=== PATIENT | female | born 1980 | race Caucasian/White ===

== ENCOUNTER 2017-01-19 10:51 | Inpatient (IN) | payer OTHER ==
[~2017-01-19] VITALS: Ht 162.6 cm; Wt 98.0 kg
--- NOTE | ~2017-01-19 | DS ---
Unit #: [id number] #: [id number] Patient: SEN CARROLL [id number] [address] [place], [place] [address] [id number] I MR#: [id number] NAME: SEN CARROLL ROOM: 224 Age: 36 Sex: F Admission Date: 01/19/2017 : 1980 Discharge Date: Attending Physician: Jeremi Finn M.D. Primary Care Physician: Jennifer Hidalgo M.D. DISCHARGE SUMMARY PRIMARY DIAGNOSIS Suicide attempt with intentional polysubstance overdose. SECONDARY DIAGNOSES 1. Polysubstance abuse. 2. Recent history of intravenous drug use. 3. Depression. 4. Anxiety. 5. Seizure disorder. 6. Reported history of thyroid disease per records. 7. Reported history of traumatic brain injury per records. 8. Hypothermia at admission secondary to drug overdose, resolved. 9. Aspiration pneumonitis. 10. Possible aspiration pneumonia. 11. Possible otitis media. 12. Acute hypoxemic respiratory failure, resolved on 01/20/2017. HOSPITAL COURSE The patient was admitted and was intubated. She was able to be quickly extubated early on the morning of the and was transferred to the medical floor at 9 in the morning. She was monitored on the medical floor for 24 hours and had stable vitals and stable exam. The patient's white blood cell count was minimally elevated at 14.8 but she did not have any fever or any cough. She was complaining of some nausea and some right ear pain. At this time, I am going to place her on a 7 day empiric course of Augmentin and recommend a repeat CBC in five days. I have also started her on Flonase nasal spray twice daily for the next 1 week. I have restarted many of her previous home medications although based on tablet counts and the date of when she filled her medications, it appears she has been noncompliant with almost all of them. As such, I restarted her gabapentin at a lower dose. I have not restarted her bupropion, her meclizine or her Bentyl or her Phenergan or her Flexeril. Restarting these could be considered depending on her symptomatology over the next few weeks but, as she had not been taking any of the medications, I didn't want to start too many too quickly. DISCHARGE DISPOSITION To [facility]. DISCHARGE STATUS Stable. DISCHARGE ACTIVITY Unit #: [id number] #: [id number] Patient: SEN CARROLL Ad alanna. DISCHARGE DIET Unrestricted. DISCHARGE FOLLOWUP With her PCP in 2-4 weeks and with [facility] while inpatient and then per their recommendations at discharge. DISCHARGE MEDICATIONS 1. Tylenol 650 mg p.o. q.4 hours p.r.n. for mild or moderate pain. 2. Flonase 0.05% nasal spray, 1 spray twice daily for the next 1 week and then stop. 3. Neurontin 200 mg p.o. t.i.d. 4. Topamax 50 mg p.o. b.i.d. 5. Zofran 4 mg p.o. q.6 hours p.r.n. for nausea. 6. Seroquel 100 mg p.o. q. h.s. 7. Xanax 0.5 mg p.o. q.6 hours p.r.n. anxiety. 8. Atenolol 25 mg p.o. daily. 9. MonoNessa 28, 1 tablet p.o. daily. 10. Augmentin 875 mg p.o. b.i.d. x7 days. The last dose should be on January 28, 2017. 11. Tramadol 100 mg p.o. q.6 hours p.r.n. severe pain for the next 3 days and then stop. Dictated by... Jeremi Finn M.D. BINDU/she TD: 01/21/2017 10:30 JOB #: [id number] DISCHARGE SUMMARY Page 1 of 1 X Jeremi Finn MD X DISCHARGE SUMMARY
--- NOTE | ~2017-01-19 | CO ---
Unit #: [id number] #: [id number] Patient: TAMMIE CARROLL [id number] [facility] [address]. [place], [place] [address] [id number] I MR#: [id number] NAME: TAMMIE CARROLL ROOM: 224 Age: 36 Sex: F Admission Date: 01/19/2017 : 1980 Attending Physician: Jeremi Finn M.D. Primary Care Physician: Jennifer Hidalgo M.D. Consultation Date: 01/20/2017 CONSULTATION REPORT REASON FOR CONSULTATION Overdose. HISTORY OF PRESENT ILLNESS Ms. Tammie Carroll is a 36-year-old white female, seen in room 224, bed 1, on 01/20/2017, at [facility]. The patient was admitted with overdose of pills, intentional, with a plan to . The patient reports that she attempted earlier also. The patient has 2 children, currently CPS is involved. Also, talked to the CPS worker, Guerline Chaney, telephone #[phone]. The patient reports her family is taking care of the children. The patient has active CPS involvement. The patient reported multiple stressors, sad, and depressed. The patient dressed casually in hospital attire, has a sitter, and currently on 72-hour hold. Tearful, sad, depressed, and anxious. The patient's urine drug screen was positive for benzodiazepine, amphetamine, marijuana, and tricyclics. PAST PSYCHIATRIC HISTORY Remarkable for history of previous suicide attempt and history of depression. Treatment at [facility] on 03/18/2009. MEDICAL HISTORY History of traumatic brain injury, seizure disorder, and thyroid disorder. MEDICATION HISTORY The patient currently on no medication. Recent overdose. FAMILY HISTORY AND SOCIAL HISTORY The patient has a good support system, has 2 children. History of substance abuse. Urine drug screen was positive for benzodiazepine, amphetamine, and marijuana. REVIEW OF SYSTEMS Complete review of systems is unremarkable except as mentioned above. MENTAL STATUS EXAMINATION The patient's vital signs; temperature 98.4, heart rate 81, respiratory rate 16, blood pressure 125/58, and oxygen saturation 100%. General appearance, the patient dressed casually, lying comfortably in bed, seemed somewhat anxious and nervous. Attention span and concentration, fair. Speech, regular rate and coherent. Oriented in time, place, and person. Mood and affect, labile. Thought process, circumstantial. Thought content, the patient denied any thoughts of harming others, but passive SI and recent suicide attempt. Recent and remote memory, fair. Language, Unit #: [id number] #: [id number] Patient: WHITE,TAMMIE intact. Fund of knowledge, fair. Insight and judgment, fair to slightly impaired. DIAGNOSES Psychiatric: Major depressive disorder, recurrent, severe, F33.2; cannabis abuse, moderate, F12.20; and amphetamine use disorder, severe, F15.20. Secondary diagnosis: Deferred. Medical diagnosis: Please refer to H and P. Stressors: Psychosocial stressors. ASSESSMENT/PLAN 1. Supportive psychotherapy and psychoeducation provided to the patient. 2. Educated about benefits and side effects of medication and course and prognosis of illness. 3. Advised no medication at this time. Continue with the sitter and 72-hour hold and transfer the patient to [facility] after the patient is medically stable for inpatient psychiatric stabilization. Please feel free to call if any questions, telephone #[phone]. Dictated by... Josesito Hampton M.D. BIBI/cecily TD: 01/20/2017 19:03 JOB #: [id number] CONSULTATION REPORT Page 1 of 1 X Josesito Hampton MD CONSULTATION REPORT
--- NOTE | ~2017-01-19 | CR6 ---
[facility] A Service of [facility] & [facility] RADIOLOGY TEXT RESULTS PATIENT: SEN CARROLL LOCATION: CICCU3 CICCU3-13 : [birth year] UNIT #: [id number] AGE: [address]: More Chappell MD SEX: F ORDER DR: [id number] [facility] [address]. [place], [place] [address] [id number] I MR#: [id number] Acc #: [id number] NAME: SEN CARROLL : 1980 SEX: F STUDY DATE/TIME: 01/19/2017 11:29 UNIT: CEDOF ROOM: 64499 STUDY DESCRIPTION: CR Abdomen Portable Sng View Attending Physician: More Chappell M.D. Ordering Physician: Mica Acharya M.D. Primary Care Physician: Jennifer Hidalgo M.D. MEDICAL IMAGING REPORT This report is preliminary unless electronic signature is present EXAM Portable abdomen, 01/19/2017. HISTORY NG tube placement. FINDINGS NG tube tip in the uppermost portion of the stomach with a sidehole in the distal thoracic esophagus. Consider advancing the tube 10 to 12 cm for placement in the mid to distal stomach. Dictated by... Jake Hills M.D. THIS IS AN ELECTRONICALLY VERIFIED REPORT Jake Hills M.D. at 01/20/2017 5:57 AM MARCELA/keron TD: 01/19/2017 17:20 JOB #: [id number] MEDICAL IMAGING REPORT Page 1 of 1 COPY
--- NOTE | ~2017-01-19 | EKG ---
PATIENT: SEN CARROLL UNIT #: [id number] Ventricular Rate: 66 BPM Atrial Rate: 66 BPM P-R Interval: 172 ms QRS Duration: 102 ms Q-T Interval: 466 ms QTC Calculation(Bezet): 488 ms P [place]: 29 degrees Calculated R [place]: -49 degrees Calculated T [place]: 46 degrees Diagnosis Line: Normal sinus rhythm Diagnosis Line: Left axis deviation Diagnosis Line: Prolonged QT Diagnosis Line: Abnormal ECG Diagnosis Line: When compared with ECG of 27-NOV-2015 19:05, Diagnosis Line: No significant change was found Diagnosis Line: Confirmed by JASON FAJARDO MD ([id number]) on Diagnosis Line: 01/21/2017 11:30:54 AM INTERPRETING MD: SCOTTY MASCORRO
--- NOTE | ~2017-01-19 | DS ---
Unit #: [id number] #: [id number] Patient: SEN CARROLL [id number] [address] [address] [id number] I MR#: [id number] NAME: SEN CARROLL ROOM: 224 Age: 36 Sex: F Admission Date: 01/19/2017 : 1980 Discharge Date: 01/21/2017 Attending Physician: Jeremi Finn M.D. Primary Care Physician: Jennifer Hidalgo M.D. DISCHARGE SUMMARY ADDENDUM Ms. Carroll was noted to have a lesion on her CT scan of her head that is felt to be benign clinically and is not felt to be related to her admission and as such is likely an incidental finding. The patient should follow up with her primary care physician, Jennifer Hidalgo M.D., and discuss whether further evaluation would be warranted once her severe depression and suicidality is better controlled. Consideration could be made for an outpatient MRI of the head sometime in the next six months, but it would certainly be reasonable to do no further imaging as well. Dictated by... Jeremi Finn M.D. BINDU/gabriel TD: 01/24/2017 11:55 JOB #: [id number] DISCHARGE SUMMARY Page 1 of 1 X Jeremi Finn MD X DISCHARGE SUMMARY
--- NOTE | ~2017-01-19 | CO ---
Unit #: [id number] #: [id number] Patient: SEN CARROLL [id number] [address] [place], [place] [address] [id number] I MR#: [id number] NAME: SEN CARROLL ROOM: 224 Age: 36 Sex: F Admission Date: 01/19/2017 : 1980 Attending Physician: Jeremi Finn M.D. Primary Care Physician: Jennifer Hidalgo M.D. Consultation Date: 01/19/2017 CONSULTATION REPORT REASON FOR CONSULT ICU management. CHIEF COMPLAINT Overdose. HISTORY OF PRESENT ILLNESS This is a 36-year-old female with a past medical history significant for depression, anxiety, seizure disorder, who presented to the emergency room via EMS for evaluation of overdose. Patient, at this point, is intubated with no sedation. Luckily, she started waking up and she is following simple commands. Upon presentation, she was hypothermic and completely unresponsive. Apparently, from the ER staff, the patient sent a message of suicide to her ex- yesterday. PAST MEDICAL HISTORY 1. Multiple suicide thoughts versus attempts in the past. 2. Seizure disorder. 3. Traumatic brain injury. 4. Thyroid disorder. PAST SURGICAL HISTORY 1. . 2. Ectopic . SOCIAL HISTORY Patient has a history of IV drug abuse. No history of alcoholism. She lives with her kids. REVIEW OF SYSTEM Unable to obtain. FAMILY HISTORY Unable to obtain. PHYSICAL EXAMINATION GENERAL: The patient is on the vent. VITAL SIGNS: Blood pressure 120/62, respiratory rate 18, O2 saturation 98%. HEENT: Atraumatic, normocephalic. PERRLA, EOMI. NECK: Supple. No JVD, no lymphadenopathy. CHEST: Decreased breath sounds bilaterally. Unit #: [id number] #: [id number] Patient: SEN CARROLL HEART: S1, S2. No murmur, gallops or rubs. ABDOMEN: Soft, nontender. Bowel sound is positive. No hepatosplenomegaly. EXTREMITIES: Trace edema. SKIN: No rashes. TMR TEACHER: Patient is on the vent but she started waking up and she is following simple commands. There is no focal motor weakness. LABS AND OTHER TESTS LABORATORY: Creatinine 0.7, CO2 24, magnesium 2.1, white blood count 14.4. IMAGING: Slight infiltrate concerning for aspiration. ASSESSMENT 1. Acute hypoxic respiratory failure. 2. Drug overdose. 3. Suicidal attempt. 4. Aspiration. 5. Traumatic brain injury. 6. Leukocytosis. PLAN 1. Patient is critical. Will continue on the vent with hope that she will be extubated within the next 24 hours. 2. Zosyn initially for possible aspiration. However, will try to de-escalate as soon as possible was this is likely to represent chemical pneumonitis. 3. IV hydration and will monitor urine output and lactic acid. 4. Propofol for sedation if needed. 5. DVT and GI prophylaxis. 6. Psych eval once she is extubated. Critical care time spent on this patient was 32 minutes. Dictated by... Mckenzie Patricia M.D. EA/she TD: 01/21/2017 06:18 JOB #: [id number] CONSULTATION REPORT Page 1 of 1 X MCKENZIE THOMAS MD X CONSULTATION REPORT
--- NOTE | ~2017-01-19 | CT71 ---
[facility] A Service of [facility] & [facility] RADIOLOGY TEXT RESULTS PATIENT: SEN CARROLL LOCATION: C2A 224-01 : [birth year] UNIT #: [id number] AGE: [address]: Jeremi Finn MD SEX: F ORDER DR: [id number] [facility] [address] [place], [place] [address] [id number] I MR#: [id number] Acc #: [id number] NAME: SEN CARROLL : 1980 SEX: F STUDY DATE/TIME: 01/19/2017 12:10 UNIT: [facility] ROOM: [facility] STUDY DESCRIPTION: CT Head Wo Contrast Attending Physician: More Chappell M.D. Ordering Physician: Mica Acharya M.D. Primary Care Physician: Jennifer Hidalgo M.D. MEDICAL IMAGING REPORT This report is preliminary unless electronic signature is present EXAM CT head HISTORY Altered mental status. Suspected overdose. Intubated. Bruising above right eye. Found unresponsive today. TECHNIQUE CT head performed skull base through vertex without intravenous contrast. This CT exam was performed with one or more of the following radiation dose reduction techniques: automatic exposure control, adjustment of mA and/or kV according to patient size, and iterative reconstruction. COMPARISON STUDIES No prior imaging of brain for comparison. FINDINGS Brainstem is unremarkable. The cerebellum and cerebral hemispheres show overall preservation of joshua matter-white matter differentiation. No hemorrhage. No evidence of acute cortical ischemia. Midline structures are nondisplaced. There is a fat density midline extraaxial mass lesion extending from the superior aspect of the pineal gland along the corpus callosum. It measures up to 2.5 cm in length by about 1.4 cm in width. It may exert some slight mass effect on adjacent structures. It appears to be of uniform fat density. 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 Differential diagnosis includes teratoma. There are subcentimeter localized fatty nodules in the bilateral lateral ventricle choroid plexus. Also with an appearance most suggestive of lipomas. I do not believe that these findings relate to the patient's acute presentation. Comparison with any prior studies recommended to assess for stability. These findings could be further evaluated with elective MRI. The basal ganglia [facility] A Service of [facility] RADIOLOGY TEXT RESULTS PATIENT: SEN CARROLL LOCATION: C2A 224-01 : [birth year] UNIT #: [id number] AGE: [address]: Jeremi Finn MD SEX: F ORDER DR: show no acute abnormality. Ventricles, cisterns and sulci within normal limits of size and contour. No abnormal fluid collection. Intraorbital soft tissues unremarkable. No fracture. Visualized paranasal sinuses and mastoid air cells show minimal mucosal thickening in the left maxillary sinus. IMPRESSION 1. There is no clearly acute abnormality seen in the brain. 2. Fat-density extraaxial mass extending superiorly and anteriorly from region of the pineal gland, along the midline corpus callosum, measuring about 2.5 cm in length by about 1.4 cm in width. Pineal or pericallosal lipoma favored. Differential diagnosis could include teratoma. There may be some very minimal mass effect on adjacent structures but I see no indication of parenchymal invasion. I doubt this is related to the patient's acute presentation. There are small subcentimeter fat-density nodules in the bilateral lateral ventricular choroid plexus. Comparison with any prior studies would be useful to assess for stability. If it would assist in patient management, the findings could be further evaluated with elective MRI. 3. No fracture. 4. Minimal mucosal thickening left maxillary sinus. Dictated by... Jorge Garcia M.D. THIS IS AN ELECTRONICALLY VERIFIED REPORT Jorge Garcia M.D. at 01/21/2017 2:31 PM DAVID/jn TD: 01/19/2017 19:18 JOB #: [id number] MEDICAL IMAGING REPORT Page 1 of 1 COPY
--- NOTE | ~2017-01-19 | CR72 ---
[facility] A Service of [facility] RADIOLOGY TEXT RESULTS PATIENT: SEN CARROLL LOCATION: CICCU3 CICCU313 : [birth year] UNIT #: [id number] AGE: [address]: More Chappell MD SEX: F ORDER DR: [id number] [facility] [address] [facility]. [place], [place] [address] [id number] I MR#: [id number] Acc #: [id number] NAME: SEN CARROLL : 1980 SEX: F STUDY DATE/TIME: 01/19/2017 11:31 UNIT: CEDOF ROOM: 67997 STUDY DESCRIPTION: CR Chest Single View Portable Attending Physician: More Chappell M.D. Ordering Physician: Mica Acharya M.D. Primary Care Physician: Jennifer Hidalgo M.D. MEDICAL IMAGING REPORT This report is preliminary unless electronic signature is present EXAM Chest x-ray, 01/19/2017. HISTORY 36-year-old female in the ED with reported drug overdose. Endotracheal tube placement. TECHNIQUE AP portable chest x-ray. FINDINGS Newly placed endotracheal tube tip is in the low thoracic trachea within 1 cm of the forest. Tube tip is directed toward the right mainstem bronchus. NG tube tip is in the uppermost portion of the stomach. Lungs clear. Heart size and pulmonary vascularity are normal. No visible pneumothorax or pleural effusion. IMPRESSION ETT and NG tube position as noted above. Dictated by... Jake Hills M.D. THIS IS AN ELECTRONICALLY VERIFIED REPORT Jake Hills M.D. at 01/20/2017 5:57 AM MARCELA/jayda TD: 01/19/2017 17:21 JOB #: [id number] MEDICAL IMAGING REPORT [facility] A Service of [facility] RADIOLOGY TEXT RESULTS PATIENT: SEN CARROLL LOCATION: CICCUDhara CICCU313 : [birth year] UNIT #: [id number] AGE: [address]: More Chappell MD SEX: F ORDER DR: Page 1 of 1 COPY
--- NOTE | ~2017-01-19 | CR72 ---
[facility] A Service of [facility] & [facility] RADIOLOGY TEXT RESULTS PATIENT: SEN CARROLL LOCATION: A 224-01 : [birth year] UNIT #: [id number] AGE: [address]: Jeremi Finn MD SEX: F ORDER DR: [id number] [facility] [address] [place], [place] [address] [id number] I MR#: [id number] Acc #: [id number] NAME: SEN CARROLL : 1980 SEX: F STUDY DATE/TIME: 01/20/2017 04:13 UNIT: C2A ROOM: 224 STUDY DESCRIPTION: CR Chest Single View Portable Attending Physician: More Chappell M.D. Ordering Physician: More Chappell M.D. Primary Care Physician: Jennifer Hidalgo M.D. MEDICAL IMAGING REPORT This report is preliminary unless electronic signature is present EXAM Portable chest, 01/20 at 04:13 hours INDICATIONS Shortness of air and cough. Overdose 2 days ago. FINDINGS AP portable chest is compared with 01/19/2017. ET tube in the lower trachea in good position. Heart is enlarged. Lungs are clear. No pneumothorax. Dictated by... Thanh Metcalf Jr., M.D. THIS IS AN ELECTRONICALLY VERIFIED REPORT Thanh Metcalf Jr., M.D. at 01/21/2017 1:54 AM TAIWO/manuel TD: 01/20/2017 12:41 JOB #: [id number] MEDICAL IMAGING REPORT Page 1 of 1 COPY
--- NOTE | ~2017-01-19 | CO ---
Unit #: [id number] #: [id number] Patient: TAMMIE CARROLL [id number] [address] [place], [place] [address] [id number] MR#: [id number] NAME: TAMMIE CARROLL ROOM: 224 Age: 36 Sex: F Admission Date: 01/19/2017 : 1980 Attending Physician: Jeremi Finn M.D. Primary Care Physician: Jennifer Hidalgo M.D. Consultation Date: 01/21/2017 CONSULTATION REPORT REASON FOR CONSULTATION Followup. DISCUSSION Ms. Tammie Carroll is a 36-year-old white female, seen in room 224, bed 1 on 01/21/2017. The patient was admitted after taking overdose, still feeling sad, depressed, anxious. The patient has a sitter, dressed casually in hospital attire. Mood labile, feeling of hopelessness and worthlessness. The patient's vital signs; temperature 98.1, pulse 80, respirations 17, blood pressure 112/74, oxygen saturation 97%. REVIEW OF SYSTEMS Complete review of systems is unremarkable. MENTAL STATUS EXAMINATION General appearance, the patient dressed casually in hospital attire, lying comfortably in bed. Attention span and concentration, fair. Speech, regular rate. Oriented in time, place, and person. Mood and affect, sad and depressed. Thought process, coherent. Thought content, the patient is having passive SI, recent suicide attempt. Denied any hallucination. Recent and remote memory, fair. Language, intact. Fund of knowledge, fair to slightly impaired. Insight and judgment, fair to slightly impaired. DIAGNOSIS Psychiatric: Major depressive disorder, recurrent, severe. ASSESSMENT/PLAN 1. Supportive psychotherapy and psychoeducation provided to the patient. 2. Educated about benefits and side effects of medication and course and prognosis of illness. 3. Advised to continue with current treatment and 72-hour hold, one-to-one monitoring and transfer the patient to [facility] as soon as bed available. Please feel free to call if any question, telephone # . Dictated by... Josesito Hampton M.D. BIBI/cecily TD: 01/23/2017 02:11 JOB #: [id number] Unit #: [id number] #: [id number] Patient: TAMMIE CARROLL CONSULTATION REPORT Page 1 of 1 X Josesito Hampton MD CONSULTATION REPORT
--- NOTE | ~2017-01-19 | HP ---
Unit #: [id number] #: [id number] Patient: SEN CARROLL [id number] [address] [place], [place] [address] [id number] MR#: [id number] NAME: SEN CARROLL ROOM: [address] Age: 36 Sex: F Admission Date: 01/19/2017 : 1980 Attending Physician: More Chappell M.D. Primary Care Physician: Jennifer Hidalgo M.D. HISTORY AND PHYSICAL CHIEF COMPLAINT Overdose HISTORY OF PRESENT ILLNESS The patient is a 36-year-old female with past medical history of depression, anxiety, seizures, thyroid disorder, traumatic brain injury, who presented to the emergency department via EMS for evaluation of the above. History is obtained from chart review and discussion with ER staff due to the patient's altered mental status. The patient apparent texted a suicide note to her ex- yesterday. This morning, she was found by her 15-year-old child who then walked to the grandparent's home and told them what had happened. EMS was contacted and brought the patient to the emergency department for further evaluation. In the emergency department, initial temperature was 92.6, pulse 72, blood pressure 112/69. She was intubated in the emergency department. Chest x-ray shows nothing acute. Urine tox screen is positive for benzodiazepines, amphetamine, marijuana, tricyclics. Initial lactic acid 2.6. She is being admitted to [facility] for evaluation and further treatment. PAST MEDICAL HISTORY 1. There is a note from [facility] dated 03/18/2009, that indicates that the patient threatened suicide in November 2008. She has a history of depression/anxiety. 2. Seizure disorder. 3. Traumatic brain injury. 4. Thyroid disorder. PAST SURGICAL HISTORY 1. 2. Ectopic . SOCIAL HISTORY The patient's children live with her. She is an IV drug user per record review. FAMILY HISTORY Unobtainable due to mental status. DIAGNOSTIC STUDIES Unit #: [id number] #: [id number] Patient: SEN CARROLL CARDIOLOGY: EKG shows normal sinus rhythm with a rate of 66 beats per minute. IMAGING: Chest x-ray shows nothing acute. Head CT shows no acute abnormality. 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 LABORATORY: Troponin is less than 0.05. Complete blood count is completely normal. Dilantin level is less than 2.5. INR is 1. Lactic acid 2.6. Comprehensive metabolic panel notable for a glucose of 154, magnesium is 2.1 Tylenol salycilates and alcohol levels are negative. Urinalysis is essentially negative. Urine tox screen is positive for benzodiazepines, amphetamine, marijuana, tricyclics. PHYSICAL EXAMINATION VITAL SIGNS: Temperature was 92.6, most recently 94.8, pulse 72, respirations 10, blood pressure 112/69. GENERAL: The patient is a female who is currently intubated, not requiring sedation. HEENT: The head is atraumatic. Mucous membranes are moist. The patient does have pinpoint pupils. NECK: Supple. Trachea is midline. CARDIOVASCULAR: Regular rate and rhythm. LUNGS: Relatively clear to auscultation bilaterally with no increased work of breathing. ABDOMEN: Soft with bowel sounds present in all four quadrants. EXTREMITIES: There is no pedal edema. NEUROLOGIC: The patient was initially obtunded with GCS score of 3. She is now opening eyes to physical stimuli and following some commands. PSYCHIATRIC: The patient demonstrates poor insight and judgment. SKIN: Of examined areas is warm and dry. ASSESSMENT The patient is a 36-year-old female with: 1. Polysubstance overdose. The patient's toxicology screen was positive for benzodiazepines, amphetamine, marijuana and tricyclics. 2. Hypothermia with initial temperature of 92.6. The patient is currently on Bandar hugger. 3. Possible aspiration. 4. Anais-pineal lipoma. This may need further imaging as an outpatient. 5. Depression/anxiety. 6. Seizures. 7. Thyroid disorder. 8. Traumatic brain injury. 9. IV drug use. PLAN 1. Admit to ICU. 2. Nothing by mouth. 3. Normal saline at 125 mL/hour 4. 72-hour hold and sitter if/when awake/extubated. 5. Consult Dr. Hampton regarding overdose. 6. Bandar hugger per protocol. 7. Blood cultures x2. 8. Zosyn for possible aspiration pending further workup. 9. Chest x-ray in the morning. Unit #: [id number] #: [id number] Patient: WHITE,SEN 10. TSH. 11. Serial cardiac enzymes. 12. HIV and hepatitis panel. 13. Consult Dr. Nash Patricia regarding ICU admission and ventilator management. 14. Sequential compression devices for deep venous thrombosis prophylaxis. 15. Protonix for gastrointestinal prophylaxis. 16. Additional workup and consultants based on above. TIME SPENT 35 minutes critical care time spent in the care of this patient (2:15 to 2:50 p.m.) Dictated by More Chappell M.D. AW/sandhya TD: 01/19/2017 15:39 JOB #: [id number] HISTORY AND PHYSICAL Page 1 of 1 X More Chappell MD X HISTORY AND PHYSICAL
[~2017-01-19 10:51] MED LIST: ALPRAZOLAM1 MG; ANTIVERT12.5 MG; CYMBALTA30 M1; FLEXERIL10 MG; PHENERGAN25 M1; SEROQUEL; TOPAMAX; TRAMADOL HCL50 M1
[2017-01-19 11:20] LABS: ARTERIAL BLD GAS O2 SATURATION 97.9 % (90.0-100.0); ARTERIAL BLOOD GAS CARBOXY HB 0.9 %sat (0.0-9.0); ARTERIAL BLOOD GAS HCO3 22.7 mmol/L; ARTERIAL BLOOD GAS MET HB 1.2 %sat (0.0-2.0); ARTERIAL BLOOD GAS PCO2 42.2 mmHg (35.0-45.0); ARTERIAL BLOOD GAS pH 7.339 (7.350-7.450)
[2017-01-19 11:53] LABS: POC - CKMB 1.9 ng/mL (0.0-7.9); POC - TROPONIN <0.05 ng/mL (<=0.05)
[2017-01-19 12:05] LABS: BASOPHIL# 0.1 X10e3 (0-0.3); BASOPHIL% 0.9 % (0-2.5); DIFF IND NO; EOSINOPHIL# 0.1 X10e3 (0-0.7); EOSINOPHIL% 1.5 % (0.0-7.0); HEMATOCRIT 38.7 % (35.0-45.0); HEMOGLOBIN 13.1 gm/dL (12.0-16.0); LYMPHOCYTE# 1.8 X10e3 (1.0-3.5); LYMPHOCYTE% 21.9 % (17.0-45.0); MEAN CELL VOLUME 86.3 FL (83-96); MEAN CORPUSCULAR HEMOGLOBIN 29.2 PG (28-34); MEAN CORPUSCULAR HGB CONC 33.9 g/dL (30-36); MEAN PLATELET VOLUME 8.6 FL (6.5-11.5); MONOCYTE# 0.7 X10e3 (0-1.0); MONOCYTE% 8.5 % (3.0-12.0); NEUTROPHIL# 5.4 X10e3 (1.5-7.1); NEUTROPHIL% 67.2 % (40-75); PLATELET COUNT 226 X10e3 (140-420); RED BLOOD COUNT 4.49 X10e (3.90-5.30); RED CELL DISTRIBUTION WIDTH 13.2 % (11.0-15.5); WHITE BLOOD COUNT 8.1 X10e3 (4.0-10.5)
[2017-01-19 12:17] LABS: PARTIAL THROMBOPLASTIN TIME 23.7 SECONDS (23.5-31.3); PROTHROMBIN TIME (PATIENT) 10.7 SECONDS (10.0-11.7)
[2017-01-19 12:28] LABS: ACETAMINOPHEN <10 ug/mL; ALBUMIN SERUM 3.6 g/dL (3.5-5.0); ALCOHOL BLOOD <5 mg/dL (0); ALKALINE PHOSPHATASE 69 U/L (32-92); ALT (SGPT) 18 U/L (10-40); AST (SGOT) 25 U/L (10-42); BILIRUBIN, DIRECT 0.2 mg/dL (0.0-0.2); BILIRUBIN,INDIRECT 0.5 mg/dL (0.0-0.9); BILIRUBIN,TOTAL 0.7 mg/dL (0.2-2.0); BLOOD UREA NITROGEN 14 mg/dL (9-23); CALCIUM SERUM 8.4 mg/dL (8.4-10.2); CARBON DIOXIDE 22 mmol/L (22-31); CHLORIDE 109 mmol/L (100-111); CPK (CREATINE PHOSPHOKINASE) 126 IU/L (26-140); CREATININE SERUM 0.8 mg/dL (0.6-1.4); GLOM FILT RATE Estimated 93.6 mL/min (>60); GLUCOSE FASTING 154 mg/dL (70-110); MAGNESIUM 2.1 mg/dL (1.6-3.0); POTASSIUM 4.1 mmol/L (3.5-5.1); PROTEIN TOTAL SERUM 6.4 g/dL (6.0-8.3); SALICYLATE <4.0 mg/dL; SODIUM 139 mmol/L (135-145)
[2017-01-19 12:31] LABS: URINE SOURCE CATH
[2017-01-19 12:34] LABS: URINE APPEARANCE CLEAR; URINE BILIRUBIN NEG (NEG); URINE BLOOD NEG (NEG); URINE COLOR YELLOW; URINE GLUCOSE NEG (NEG); URINE KETONE NEG (NEG); URINE LEUKOCYTE ESTERASE NEG (NEG); URINE NITRATE NEG (NEG); URINE PH 5.5 (5-8); URINE PROTEIN NEG (NEG); URINE SPECIFIC GRAVITY 1.021 (1.003-1.035); URINE UROBILINOGEN 0.2 MG/DL (NEG)
[2017-01-19 12:39] LABS: CULTURE INDICATED? NO
[2017-01-19] MEDS ORDERED: FLEXERIL10 MG PO (12:45)
[2017-01-19] MEDS ORDERED: PATIENT'S PHARMACY (12:45)
[2017-01-19] MEDS ORDERED: MONONESSA 28 T1 EACH PO (12:45)
[2017-01-19] MEDS ORDERED: ALPRAZOLAM1 MG PO (12:45)
[2017-01-19] MEDS ORDERED: PHENERGAN PO (12:46)
[2017-01-19] MEDS ORDERED: SEROQUEL PO (12:46)
[2017-01-19] MEDS ORDERED: ANTIVERT PO (12:46)
[2017-01-19 12:47] LABS: AMPHETAMINE POS (NEG); BARBITURATES NEG (NEG); BENZODIAZEPINES POS (NEG); COCAINE NEG (NEG); MARIJUANA POS (NEG); OPIATES NEG (NEG); TRICYCLIC ANTIDEPRESSANTS POS (NEG); U METHADONE NEG (NEG)
[2017-01-19] MEDS ORDERED: BENTYL10 MG PO (12:47)
[2017-01-19] MEDS ORDERED: TENORMIN25 MG PO (12:47)
[2017-01-19] MEDS ORDERED: BUPROPION XL300 M1 PO (12:49)
[2017-01-19] MEDS ORDERED: BUPROPION XL150 MG PO (12:49)
[2017-01-19] MEDS ORDERED: NEURONTIN300 MG PO (12:50)
[2017-01-19] MEDS ORDERED: TOPAMAX PO (12:50)
[2017-01-19 13:31] LABS: POC - CKMB 1.8 ng/mL (0.0-7.9); POC - TROPONIN <0.05 ng/mL (<=0.05)
[2017-01-19 15:45] LABS: ARTERIAL BLOOD GAS ALLEN TEST NORMAL; ARTERIAL BLOOD GAS ART SITE LEFT RADIAL; ARTERIAL DRAW? YES
[2017-01-19 20:44] LABS: MB 1.8 ng/ml
[2017-01-20 01:43] LABS: BASOPHIL% 0.3 % (0-2.5); EOSINOPHIL# 0.2 X10e3 (0-0.7); EOSINOPHIL% 1.7 % (0.0-7.0); HEMATOCRIT 35.5 % (35.0-45.0); HEMOGLOBIN 12.3 gm/dL (12.0-16.0); LYMPHOCYTE% 13.9 % (17.0-45.0); MEAN CELL VOLUME 84.1 FL (83-96); MEAN CORPUSCULAR HEMOGLOBIN 29.1 PG (28-34); MEAN CORPUSCULAR HGB CONC 34.6 g/dL (30-36); MEAN PLATELET VOLUME 8.5 FL (6.5-11.5); MONOCYTE# 1.1 X10e3 (0-1.0); MONOCYTE% 7.5 % (3.0-12.0); NEUTROPHIL# 11.1 X10e3 (1.5-7.1); NEUTROPHIL% 76.6 % (40-75); PLATELET COUNT 256 X10e3 (140-420); RED BLOOD COUNT 4.23 X10e (3.90-5.30); RED CELL DISTRIBUTION WIDTH 13.3 % (11.0-15.5)
[2017-01-20 01:48] LABS: DIFF IND NO; WHITE BLOOD COUNT 14.4 X10e3 (4.0-10.5)
[2017-01-20 02:05] LABS: ALBUMIN SERUM 3.5 g/dL (3.5-5.0); BILIRUBIN,TOTAL 0.6 mg/dL (0.2-2.0); BUN/CREATININE RATIO 14.28; CALCIUM SERUM 8.1 mg/dL (8.4-10.2); CREATININE SERUM 0.7 mg/dL (0.6-1.4); GLOM FILT RATE Estimated 109.9 mL/min (>60); POTASSIUM 3.6 mmol/L (3.5-5.1); PROTEIN TOTAL SERUM 6.1 g/dL (6.0-8.3)
[2017-01-20 02:36] LABS: %MB 2.2 % (0.0-4.0); MB 1.6 ng/ml
[2017-01-20 03:42] LABS: ARTERIAL BLD GAS O2 SATURATION 98.3 % (90.0-100.0); ARTERIAL BLOOD GAS CARBOXY HB 0.4 %sat (0.0-9.0); ARTERIAL BLOOD GAS HCO3 24.4 mmol/L; ARTERIAL BLOOD GAS MET HB 0.8 %sat (0.0-2.0); ARTERIAL BLOOD GAS PCO2 36.1 mmHg (35.0-45.0); ARTERIAL BLOOD GAS pH 7.438 (7.350-7.450)
[2017-01-20 03:43] LABS: ARTERIAL BLOOD GAS ALLEN TEST NORMAL; ARTERIAL BLOOD GAS ART SITE RIGHT RADIAL; ARTERIAL BLOOD GAS DELIVERY VENT; ARTERIAL BLOOD GAS VENT MODE AC; ARTERIAL DRAW? YES
[2017-01-21 05:28] LABS: BASOPHIL# 0.1 X10e3 (0-0.3); BASOPHIL% 0.4 % (0-2.5); EOSINOPHIL# 0.3 X10e3 (0-0.7); EOSINOPHIL% 2.1 % (0.0-7.0); HEMATOCRIT 36.2 % (35.0-45.0); HEMOGLOBIN 12.2 gm/dL (12.0-16.0); LYMPHOCYTE% 20.3 % (17.0-45.0); MEAN CELL VOLUME 84.2 FL (83-96); MEAN CORPUSCULAR HEMOGLOBIN 28.3 PG (28-34); MEAN CORPUSCULAR HGB CONC 33.6 g/dL (30-36); MEAN PLATELET VOLUME 8.7 FL (6.5-11.5); MONOCYTE# 1.2 X10e3 (0-1.0); NEUTROPHIL# 10.3 X10e3 (1.5-7.1); NEUTROPHIL% 69.2 % (40-75); PLATELET COUNT 276 X10e3 (140-420); RED CELL DISTRIBUTION WIDTH 13.1 % (11.0-15.5); WHITE BLOOD COUNT 14.8 X10e3 (4.0-10.5)
[2017-01-21 05:38] LABS: DIFF IND NO
[2017-01-21 06:13] LABS: CALCIUM SERUM 8.3 mg/dL (8.4-10.2); CREATININE SERUM 0.6 mg/dL (0.6-1.4); GLOM FILT RATE Estimated 115.6 mL/min (>60); POTASSIUM 3.3 mmol/L (3.5-5.1)
[2017-01-22 10:08] LABS: HA AB IGM (HEPPAN) Nonreactive (()); HB CORE AB IGM (HEPPAN) Nonreactive (Nonreactive); HB S AG (HEPPAN) Nonreactive (Nonreactive); HEP C AB (HEPPAN) Nonreactive (Nonreactive); HEP C AB SIGNAL TO CUTOFF 0.02 ratio (<1.00)
== END 2017-01-21 22:35 | DRG 917 ==
LOC: CED 10:51 → CICCU3 14:45 → C2A 14:45 → CEDOF 14:45 → CED 15:15 → CICCU3 18:24 → C2A 01-20 10:34
PROVIDERS: Emergency Medicine; Family Medicine; Internal Medicine Pulmonary Disease
PROC: 0BH17EZ Insertion of Endotracheal Airway into Trachea, Via Natural or Artificial Opening (ICD-10-PCS; principal; 2017-01-19)
PROC: 5A1935Z Respiratory Ventilation, Less than 24 Consecutive Hours (ICD-10-PCS; 2017-01-19)
DX: T42.4X2A Poisoning by benzodiazepines, intentional self-harm, initial encounter (principal); J69.0 Pneumonitis due to inhalation of food and vomit; J96.01 Acute respiratory failure with hypoxia; F33.2 Major depressive disorder, recurrent severe without psychotic features; F15.20 Other stimulant dependence, uncomplicated; T43.592A Poisoning by other antipsychotics and neuroleptics, intentional self-harm, initial encounter; T43.622A Poisoning by amphetamines, intentional self-harm, initial encounter; T43.012A Poisoning by tricyclic antidepressants, intentional self-harm, initial encounter; T40.7X2A Poisoning by cannabis (derivatives), intentional self-harm, initial encounter; F41.9 Anxiety disorder, unspecified; G40.909 Epilepsy, unspecified, not intractable, without status epilepticus; Z87.820 Personal history of traumatic brain injury; H66.91 Otitis media, unspecified, right ear; D17.79 Benign lipomatous neoplasm of other sites; E07.9 Disorder of thyroid, unspecified; F12.20 Cannabis dependence, uncomplicated
CPT/HCPCS: 31500; 36600; 70450; 71010; 74000; 80048; 80053; 80074; 80076; 80185; 80307; 81003; 82308; 82550; 82553; 82803; 83605; 83735; 84443; 84484; 84703; 85025; 85610; 85730; 87040; 87806; 93005; 94002; 94003; 94760; 96361; 96374; 96375; 99291; C9113; G0480; J1650; J2543

== ENCOUNTER 2017-01-21 10:41 | Inpatient (IN) | payer OTHER ==
[~2017-01-21] VITALS: Ht 167.6 cm; Wt 95.7 kg
--- NOTE | ~2017-01-21 | PN ---
Unit #: [id number] #: [id number] Patient: SEN CARROLL [id number] [facility] [address] [place] [address] [id number] MR#: [id number] NAME: SEN CARROLL ROOM: [facility] Age: 36 Sex: F Admission Date: 01/21/2017 : 1980 Attending Physician: Josesito Hampton M.D. Admitting Physician: Josesito Hampton M.D. Primary Care Physician: Estuardo Lorenzana PROGRESS NOTES DATE 01/23/2017 DISCUSSION Ms. Cho is a 36-year-old female, seen on 01/23/2017. The patient interviewed, chart reviewed, and obtained information from the nursing staff. The patient was compliant and cooperative, denied any thoughts of harming self or others. Mood brighter. The patient denied any side effects from medications. REVIEW OF SYSTEMS Complete review of systems unremarkable. MENTAL STATUS EXAMINATION General appearance: Patient dressed casually. Attention span and concentration, fair. Oriented in time, place, and person. Mood and affect, labile. Speech, monotone. Thought process, concrete. The patient denied any thoughts of harming self or others. Recent and remote memory, poor. Insight and judgment, poor. DIAGNOSES 1. Major depressive disorder, recurrent, severe. 2. Amphetamine use disorder, severe, F13.20. 3. Cannabis abuse, moderate, F12.20. ASSESSMENT/PLAN Advised to discontinue Wellbutrin because of seizure, continue with the other medications with the plan to consider discharge next week with the plan to follow up in IOP level of care. Dictated by... Estuardo Poe/eris TD: 01/26/2017 08:45 JOB #: [id number] Unit #: [id number] #: [id number] Patient: SEN CARROLL PROGRESS NOTES Page 1 of 1 X Josesito Hampton MD PROGRESS NOTE
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
--- NOTE | ~2017-01-21 | HP ---
Unit #: [id number] #: [id number] Patient: TAMMIE CARROLL [id number] [facility] [address] [place] [address] [id number] I MR#: [id number] NAME: TAMMIE CARROLL ROOM: [facility] Age: 36 Sex: F Admission Date: 01/21/2017 : 1980 Attending Physician: Josesito Hampton M.D. Admitting Physician: Josesito Hampton M.D. Primary Care Physician: Jennifer Hidalgo M.D. HISTORY AND PHYSICAL Tammie is a 36-year-old female admitted on 01/21/2017 to [facility] as a transfer from [facility]. She was initially admitted to [place] for attempted suicide by overdosing and subsequently transferred here. I have reviewed the history and physical from [facility] dated 01/19/2017 and there are no changes. Dictated by... Yary Kebede/kin TD: 01/22/2017 16:49 JOB #: [id number] HISTORY AND PHYSICAL Page 1 of 1 X MIKE [place] APRN X HISTORY AND PHYSICAL
[~2017-01-21 10:41] MED LIST changes: +ALPRAZOLAM1 MG PO; +ANTIVERT PO; +BENTYL10 MG PO; +BUPROPION XL150 MG PO; +BUPROPION XL300 M1 PO; +FLEXERIL10 MG PO; +MONONESSA 28 T1 EACH PO; +NEURONTIN300 MG PO; +PATIENT'S PHARMACY; +PHENERGAN PO; +SEROQUEL PO; +TENORMIN25 MG PO; +TOPAMAX PO
== END 2017-01-24 10:35 | DRG 885 ==
LOC: P1E 23:16
DX: F33.2 Major depressive disorder, recurrent severe without psychotic features (principal); F13.20 Sedative, hypnotic or anxiolytic dependence, uncomplicated; F15.20 Other stimulant dependence, uncomplicated; F12.20 Cannabis dependence, uncomplicated; G40.909 Epilepsy, unspecified, not intractable, without status epilepticus; F17.200 Nicotine dependence, unspecified, uncomplicated; Z87.820 Personal history of traumatic brain injury